=== PATIENT | male | born 1965 | race Two or more races ===

== ENCOUNTER 2016-11-13 12:28 | Emergency (ER) | payer SELFPAY ==
[~2016-11-13] VITALS: Ht 180.3 cm; Wt 91.5 kg
[2016-11-13] MEDS ORDERED: SODIUM CHLORIDE 0.9% 1,000ML IVBOLUS ONE (13:30)
[2016-11-13 13:48] LABS: BLOOD UREA NITROGEN 11 mg/dL (7-18)
[2016-11-13] MEDS ORDERED: HYDROcodone/APAP 5/325 TABLET ONE (14:14)
[2016-11-13 14:24] VITALS: BP 139/75
[2016-11-13] MEDS ORDERED: PLEASE ENTER ALLERGIES MC SCH ×2 (14:30)
[2016-11-13] MEDS ORDERED: HYDROcodone/APAP 5/325 TABLET PO ONE (14:30)
== END 2016-11-13 14:26 | disposition home or self-care (01) ==
LOC: ED 14:20
DX: E86.9 Volume depletion, unspecified (principal); R11.2 Nausea with vomiting, unspecified; I10 Essential (primary) hypertension; E11.9 Type 2 diabetes mellitus without complications; E78.00 Pure hypercholesterolemia, unspecified
CPT/HCPCS: 36415; 80048; 82010; 82040; 82962; 85025; 93005; 96360; 99285; J7030

== ENCOUNTER 2016-11-22 19:15 | Emergency (ER) | payer SELFPAY ==
[~2016-11-22] VITALS: Ht 180.3 cm; Wt 92.6 kg
[2016-11-22 19:18] VITALS: BP 174/100
== END 2016-11-22 19:37 | disposition left against medical advice (07) ==
LOC: ED 19:31
DX: Z00.00 Encounter for general adult medical examination without abnormal findings (principal)
CPT/HCPCS: 99281

== ENCOUNTER 2016-11-28 15:06 | Emergency (ER) | payer MEDICARE, OTHER ==
[~2016-11-28] VITALS: Ht 180.3 cm; Wt 93.8 kg
[2016-11-28 15:13] VITALS: BP 162/99
== END 2016-11-28 15:51 | disposition home or self-care (01) ==
LOC: ED 15:40
DX: K02.9 Dental caries, unspecified (principal); E11.9 Type 2 diabetes mellitus without complications; I10 Essential (primary) hypertension
CPT/HCPCS: 99283

== ENCOUNTER 2017-01-01 14:40 | Emergency (ER) | payer OTHER ==
[~2017-01-01] VITALS: Ht 180.3 cm; Wt 88.5 kg
[2017-01-01 14:51] VITALS: BP 130/89
[2017-01-01] MEDS ORDERED: SODIUM CHLORIDE FLUSH 10ML SYR IVF ONE (15:30)
[2017-01-01] MEDS ORDERED: ONDANSETRON 2MG/ML, 2ML IVPush ONE (15:30)
[2017-01-01] MEDS ORDERED: FAMOTIDINE 20 MG/2 ML IVP ONE (15:30)
[2017-01-01] MEDS ORDERED: SODIUM CHLORIDE 0.9% 1,000ML IVBOLUS ONE (15:30)
[2017-01-01] MEDS ORDERED: MAALOX/HYOSCYAMINE/LIDOCAINE 45 ML BTL PO ONE (15:30)
[2017-01-01 15:58] LABS: HEMATOCRIT 47.2 % (39.2-51.8); HEMOGLOBIN 15.9 g/dL (13.7-18.0); WHITE BLOOD COUNT 18.2 x10^3/uL (3.4-10)
[2017-01-01] MEDS ORDERED: METF500T4 PO (16:04)
[2017-01-01] MEDS ORDERED: HYDR-3245 PO (16:04)
[2017-01-01 16:07] LABS: DIFF TOTAL CELLS COUNTED 100 CELL DIFF
[2017-01-01] MEDS ORDERED: ONDANSETRON 2MG/ML, 2ML ONE (16:10)
[2017-01-01] MEDS ORDERED: MAALOX/HYOSCYAMINE/LIDOCAINE 45 ML BTL ONE (16:10)
[2017-01-01] MEDS ORDERED: FAMOTIDINE 20 MG/2 ML ONE (16:11)
[2017-01-01 16:13] LABS: ASPARTATE AMINO TRANSFERASE 13 U/L (15-37); BLOOD UREA NITROGEN 18 mg/dL (7-18)
[2017-01-01 16:34] LABS: VERIFY COUNTS? YES
== END 2017-01-01 17:54 | disposition home or self-care (01) ==
LOC: ED 17:50
DX: R10.33 Periumbilical pain (principal); R11.2 Nausea with vomiting, unspecified; R19.7 Diarrhea, unspecified; M19.172 Post-traumatic osteoarthritis, left ankle and foot; I10 Essential (primary) hypertension
CPT/HCPCS: 36415; 74020; 76700; 80053; 83690; 85025; 96361; 96374; 96375; 99285; J2405; J7030; S0028

== ENCOUNTER 2017-01-04 22:10 | Emergency (ER) | payer OTHER ==
[~2017-01-04] VITALS: Ht 180.3 cm; Wt 89.8 kg
[~2017-01-04 22:10] MED LIST: HYDR-3245 PO; METF500T4 PO
[2017-01-04 23:52] LABS: HEMATOCRIT 43.8 % (39.2-51.8); HEMOGLOBIN 14.8 g/dL (13.7-18.0); WHITE BLOOD COUNT 16.3 x10^3/uL (3.4-10)
[2017-01-05] MEDS ORDERED: HYDROcodone/APAP 5/325 TABLET PO ONE
[2017-01-05 00:05] LABS: ASPARTATE AMINO TRANSFERASE 13 U/L (15-37); BLOOD UREA NITROGEN 17 mg/dL (7-18)
[2017-01-05] MEDS ORDERED: HYDROcodone/APAP 5/325 TABLET ONE (00:07)
[2017-01-05 00:41] VITALS: BP 124/78
== END 2017-01-05 00:43 | disposition home or self-care (01) ==
LOC: ED 23:14
DX: L03.211 Cellulitis of face (principal); L73.9 Follicular disorder, unspecified; Z72.89 Other problems related to lifestyle; E11.9 Type 2 diabetes mellitus without complications; I10 Essential (primary) hypertension; M19.90 Unspecified osteoarthritis, unspecified site; E78.00 Pure hypercholesterolemia, unspecified
CPT/HCPCS: 36415; 80053; 85025; 93005; 99285

== ENCOUNTER 2017-08-09 10:03 | Emergency (ER) | payer OTHER ==
[~2017-08-09] VITALS: Ht 180.3 cm; Wt 85.9 kg
[2017-08-09 10:04] VITALS: BP 133/76
== END 2017-08-09 12:39 | disposition home or self-care (01) ==
LOC: ED 11:00
DX: S63.501A Unspecified sprain of right wrist, initial encounter (principal); S60.221A Contusion of right hand, initial encounter; W01.0XXA Fall on same level from slipping, tripping and stumbling without subsequent striking against object, initial encounter; Y93.01 Activity, walking, marching and hiking; Y92.89 Other specified places as the place of occurrence of the external cause; Y99.9 Unspecified external cause status
CPT/HCPCS: 29125; 99284

== ENCOUNTER 2018-03-12 16:01 | Emergency (ER) | payer MEDICAID, OTHER ==
[~2018-03-12] VITALS: Ht 172.7 cm; Wt 80.1 kg
[~2018-03-12 16:01] MED LIST changes: +METF500T17 PO; -METF500T4 PO
[2018-03-12 16:28] LABS: BASOPHILS # (AUTO) 0.11 x10^3/uL (0-0.1); BASOPHILS % (AUTO) 1 % (0-1); EOSINOPHILS # (AUTO) 0.12 x10^3/uL (0-0.4); EOSINOPHILS % (AUTO) 1 % (1-7); LYMPHOCYTES % (AUTO) 26 % (22-44); MD NO; MEAN CORPUSCULAR HEMOGLOBIN 31.8 pg (27.5-34.5); MEAN CORPUSCULAR HGB CONC 33.9 g/dL (33.2-36.2); MEAN CORPUSCULAR VOLUME 93.7 fL (81-97); MEAN PLATELET VOLUME 8.2 fL (7.4-10.4); MONOCYTES # (AUTO) 0.58 x10^3/uL (0.2-0.8); MONOCYTES % (AUTO) 4 % (2-9); NEUTROPHILS # (AUTO) 9.34 x10^3/uL (1.8-6.8); NEUTROPHILS % (AUTO) 69 % (42-75); PLATELET COUNT 267 x10^3/uL (130-400); RED BLOOD COUNT 5.09 x10^6/uL (4.38-5.82); RED CELL DISTRIBUTION WIDTH 12.9 % (9.4-14.8)
[2018-03-12] MEDS ORDERED: ASPIRIN 81 MG TABLET CHEW PO ONE (16:30)
[2018-03-12 16:37] LABS: ALBUMIN 3.7 g/dL (3.4-5.0); ANION GAP 7 mmol/L (5-15); CALCIUM 8.6 mg/dL (8.5-10.1); CHLORIDE 108 mmol/L (98-107)
[2018-03-12] MEDS ORDERED: PROMETHAZINE 25 MG/ML, 1ML ONE (16:38)
[2018-03-12] MEDS ORDERED: ASPIRIN 81 MG TABLET CHEW ONE (16:39)
[2018-03-12 16:42] LABS: CREATININE 0.83 mg/dL (0.7-1.3); TROPONIN I < 0.015 ng/mL (0.000-0.045)
[2018-03-12] MEDS ORDERED: PROMETHAZINE 25 MG/ML, 1ML IM ONE (17:00)
[2018-03-12 17:44] VITALS: BP 92/52
== END 2018-03-12 18:06 | disposition home or self-care (01) ==
LOC: ED 16:20
DX: R07.89 Other chest pain (principal); F11.23 Opioid dependence with withdrawal; E11.9 Type 2 diabetes mellitus without complications
CPT/HCPCS: 36415; 71046; 80048; 82040; 83880; 84484; 85025; 93005; 96372; 99285; J2550

== ENCOUNTER 2020-05-22 05:45 | Emergency (ER) | payer MEDICAID ==
[~2020-05-22] VITALS: Ht 180.3 cm; Wt 90.0 kg
[2020-05-22 05:48] VITALS: BP 141/85
[2020-05-22] MEDS ORDERED: PENICILLIN VK 500MG TABLET ONE (06:27)
[2020-05-22] MEDS ORDERED: PENICILLIN VK 500MG TABLET PO ONE (06:30)
== END 2020-05-22 07:07 | disposition home or self-care (01) ==
LOC: ED 07:00
DX: K04.7 Periapical abscess without sinus (principal); R51.9 Headache, unspecified; I10 Essential (primary) hypertension; E11.9 Type 2 diabetes mellitus without complications; E78.00 Pure hypercholesterolemia, unspecified
CPT/HCPCS: 99283